=== PATIENT | male | born 1960 | race Caucasian/White ===

== ENCOUNTER 2017-12-04 16:34 | Inpatient (IN) | payer OTHER ==
[~2017-12-04] VITALS: Ht 177.8 cm; Wt 88.5 kg
[2017-12-04 16:50] VITALS: BP 126/84
[2017-12-04 17:23] LABS: ABSOLUTE LYMPHOCYTES 0.9 thou/uL (0.8-5.3); ABSOLUTE MONOCYTES 1.4 thou/uL (0.0-1.2); ABSOLUTE NEUTROPHILS 6.6 thou/uL (1.6-8.1); BASOPHILS 0.4 %; EOSINOPHILS 0.1 %; HEMATOCRIT 41.9 % (42.0-52.0); HEMOGLOBIN 14.6 gm/dL (14.0-18.0); MCHC 34.9 g/dL (28.0-37.0); MCV 100.3 fL (80.0-100.0); MONOCYTES 16.1 %; MPV 7.8 fl. (7.2-11.1); NUCLEATED RBCS 0 /100WBC; PLATELET COUNT* 94 thou/uL (150-400); POLYS 73.4 %; RBC 4.18 mil/uL (4.50-6.00); RDW-CV 14.1 % (10.5-14.5)
[2017-12-04 17:31] LABS: ANION GAP 11 mmol/L (7-16); BUN 18 mg/dL (7-18); CALCIUM 8.9 mg/dL (8.5-10.1); CHLORIDE 97 mmol/L (98-107); CO2 26 mmol/L (21-32); CREATININE 0.7 mg/dL (0.6-1.3); GLUCOSE 92 mg/dL (70-99); POTASSIUM 3.4 mmol/L (3.5-5.1); SODIUM 134 mmol/L (136-145)
[2017-12-04 17:38] LABS: ALKALINE PHOSPHATASE 118 U/L (46-116); LIPASE 211 U/L (73-393); SGOT 85 U/L (15-37); SGPT 59 U/L (30-65); TOTAL BILIRUBIN 2.6 mg/dL (<0.1-1.0); TROPONIN-I LEVEL <0.06 ng/mL (<0.06)
[2017-12-04 17:42] LABS: URINE BLOOD NEGATIVE (Negative); URINE CLARITY CLEAR; URINE COLOR DARK YELLOW; URINE GLUCOSE-RANDOM NEGATIVE (Negative); URINE KETONES 1+ (Negative); URINE LEUKOCYTES-REFLEX NEGATIVE (Negative); URINE PROTEIN TRACE (Negative); URINE SPECIFIC GRAVITY 1.025 (1.005-1.030)
[2017-12-04 17:43] LABS: ICTOTEST (BILI CONFIRMATORY) Negative (Negative); URINE BILIRUBIN 2+ (Negative); URINE NITRITE-REFLEX POSITIVE (Negative)
[2017-12-04 17:49] LABS: AMP/METHAMP Negative (Negative); BARBITURATES Negative (Negative); BENZODIAZEPINES Negative (Negative); COCAINE Negative (Negative); METHADONE Negative (Negative); OPIATES Negative (Negative); PCP Negative (Negative); THC Negative (Negative)
[2017-12-04 17:50] LABS: SQUAMOUS 4-10 Moderate /LPF (0-3)
[2017-12-04 17:51] LABS: CASTS None Seen /LPF (None Seen); CRYSTALS None Seen /LPF (None Seen); MUCUS 4-6 Moderate strn/LPF (None Seen); URINE RBC None Seen /HPF (0-2); URINE WBC-REFLEX 0-5 Rare /HPF (0-5)
[2017-12-04 22:11] VITALS: BP 126/77
[2017-12-04 22:20] VITALS: BP 113/74
[2017-12-04 23:08] LABS: INR 1.2; PROTIME 12.7 Seconds (9.20-11.50)
[2017-12-04 23:11] LABS: MAGNESIUM 1.9 mg/dL (1.8-2.4); PHOSPHORUS* 4.4 mg/dL (2.5-4.9)
[2017-12-05 04:00] VITALS: BP 120/79
[2017-12-05 04:36] LABS: HEMATOCRIT 38.2 % (42.0-52.0); HEMOGLOBIN 13.1 gm/dL (14.0-18.0); MCH 34.7 pg (26.0-34.0); MCHC 34.3 g/dL (28.0-37.0); MCV 101.1 fL (80.0-100.0); MPV 7.8 fl. (7.2-11.1); RBC 3.78 mil/uL (4.50-6.00); RDW-CV 13.7 % (10.5-14.5); WBC 6.8 thou/uL (4.0-11.0)
[2017-12-05 05:01] LABS: ALBUMIN 2.4 g/dL (3.4-5.0); CALCIUM 7.8 mg/dL (8.5-10.1); CREATININE 0.6 mg/dL (0.6-1.3); TOTAL BILIRUBIN 1.4 mg/dL (<0.1-1.0); TOTAL PROTEIN 6.6 g/dL (6.4-8.2)
[2017-12-05 05:44] LABS: POTASSIUM 2.9 mmol/L (3.5-5.1)
--- NOTE | 2017-12-05 10:18 | EKG ---
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 CHRIS : 1960 Requested By: Jailyn Vaz Order Number: [id number] MD: Reymundo Corley Measurements Intervals [place] Rate: 85 P: 51 [place]: 169 QRS: 2 QRSD: 110 T: 44 QT: 430 QTc: 512 Interpretive Statements Sinus rhythm Abnormal R-wave progression, early transition Minimal ST elevation, anterior leads Prolonged QT interval No previous ECG available for comparison Electronically Signed On 12-05-2017 10:18:32 CDT by Reymundo Corley [email or web address] <ELECTRONICALLY SIGNED> By: Reymundo Corley MD, [facility] 12/05/17 1018 1729 1729 Reymundo Corley MD, [facility] /EPI
[2017-12-05 12:19] VITALS: BP 136/83
[2017-12-05 15:42] VITALS: BP 136/83
[2017-12-05 16:26] VITALS: BP 123/83
[2017-12-05 20:00] VITALS: BP 127/78
[2017-12-06] VITALS: BP 130/75
[2017-12-06 04:00] VITALS: BP 133/90
[2017-12-06 04:50] LABS: HEMATOCRIT 40.4 % (42.0-52.0); HEMOGLOBIN 13.6 gm/dL (14.0-18.0); MCH 34.3 pg (26.0-34.0); MCHC 33.6 g/dL (28.0-37.0); MCV 102.2 fL (80.0-100.0); RBC 3.96 mil/uL (4.50-6.00); RDW-CV 14.2 % (10.5-14.5); WBC 4.4 thou/uL (4.0-11.0)
[2017-12-06 05:11] LABS: ALBUMIN 2.5 g/dL (3.4-5.0); CALCIUM 8.4 mg/dL (8.5-10.1); CREATININE 0.6 mg/dL (0.6-1.3); MAGNESIUM 1.5 mg/dL (1.8-2.4); PHOSPHORUS* 2.6 mg/dL (2.5-4.9); POTASSIUM 3.8 mmol/L (3.5-5.1); TOTAL BILIRUBIN 2.3 mg/dL (<0.1-1.0); TOTAL PROTEIN 6.9 g/dL (6.4-8.2)
[2017-12-06 07:30] VITALS: BP 127/84
[2017-12-06 12:06] VITALS: BP 134/82
[2017-12-06 15:54] VITALS: BP 158/101
[2017-12-06 20:00] VITALS: BP 142/90
[2017-12-07] VITALS: BP 136/84
[2017-12-07 04:00] VITALS: BP 139/90
[2017-12-07 05:03] LABS: HEMATOCRIT 40.4 % (42.0-52.0); HEMOGLOBIN 14.1 gm/dL (14.0-18.0); MCH 35.5 pg (26.0-34.0); MCHC 35.1 g/dL (28.0-37.0); MCV 101.3 fL (80.0-100.0); MPV 7.8 fl. (7.2-11.1); RBC 3.99 mil/uL (4.50-6.00); RDW-CV 13.8 % (10.5-14.5); WBC 4.2 thou/uL (4.0-11.0)
[2017-12-07 05:29] LABS: ALBUMIN 2.5 g/dL (3.4-5.0); CALCIUM 8.5 mg/dL (8.5-10.1); CREATININE 0.6 mg/dL (0.6-1.3); MAGNESIUM 1.6 mg/dL (1.8-2.4); POTASSIUM 3.5 mmol/L (3.5-5.1); TOTAL BILIRUBIN 1.3 mg/dL (<0.1-1.0); TOTAL PROTEIN 7.3 g/dL (6.4-8.2)
[2017-12-07 07:30] VITALS: BP 135/95
[2017-12-07 12:25] VITALS: BP 129/87
[2017-12-07 13:23] LABS: MAGNESIUM 1.7 mg/dL (1.8-2.4); POTASSIUM 4.1 mmol/L (3.5-5.1)
--- NOTE | 2017-12-07 16:02 | CON ---
[address] [address] CONSULTATION Name: DEVIKA WONG Room: [address] IN .R.#: [id number] Admission: 12/04/17 Attend Phys: Hardy Ivey MD Discharge: Date of : 58 Report #: [id number] THIS REPORT FOR: //name// CC: Hardy Ivey [facility] physician/PCP DATE OF SERVICE: 12/06/2017 CONSULTATION: Infectious Diseases. HISTORY OF PRESENT ILLNESS: Mr. Devika Wong is a 57-year-old gentleman who comes in to the hospital complaining of multiple falls as well as pain in his left ear. The patient is homeless, living in a plastic longterm in the [facility]. He has noted for a few days of increasing ear pain, and falling down. Evaluation showed significant soft tissue bruising, but no major injuries. He has some arthritis. However, the CT of the neck and the head demonstrates significant mastoiditis on the left with middle ear fluid. PAST MEDICAL HISTORY: Significant for alcoholism. The chart notes that patient drinks 30 beers per day. He clarifies he has up to 30 beers per day, but typically will have one or two 6-packs per day. He denies any other medical problems. ALLERGIES: No allergies. FAMILY HISTORY: Noncontributory. REVIEW OF SYSTEMS: The patient is single. 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 He was living in hotel and he ran out of money. He moved to the [facility]. He says he is able to eat using [employer] from the [employer] and he says he has 1-2 meals per day. He says he drinks about a 6-pack or two a day. He smokes 2-3 cigarettes per day, mostly when he drinks. REVIEW OF SYSTEMS: At this time, the patient really says he is very comfortable and does not offer any complaints. Denies any head, neck, chest, GI or problems. On questioning, he does note pain in his left ear and mastoid. PHYSICAL EXAMINATION: GENERAL: The patient appears his stated age, alert, oriented, comfortable, not in any distress. VITAL SIGNS: Show no fevers since coming to the hospital. SKIN: Shows a number of small follicular rashes consistent with living in the [facility]. Nothing terribly significant. ENT: Shows drainage in the left ear. The pinna is tender when pressed. The mastoid on the left side is somewhat tender. [place] [address] CONSULTATION Name: DEVIKA WONG Room: [address] IN [facility]#: [id number] Admission: 12/04/17 Attend Phys: Hardy Ivey MD Discharge: Date of : 58 Report #: [id number] adenopathy. HEART: Sounds normal. LUNGS: Clear. ABDOMEN: Belly soft, not tender. EXTREMITIES: Shows some swelling in the left arm from infiltration of the IV. LABORATORY DATA: White count is 9.0 initially, down to 4.4, hemoglobin 13.6, platelet 83,000. Electrolytes: BUN and creatinine are normal. Liver function tests are elevated with bilirubin 2.6, SGOT 165, SGPT 94, alkaline phosphatase 128, GGTP elevated at 676. The blood cultures x 2 are negative. Urine culture is negative. IMPRESSION: 1. Otitis with mastoiditis. 2. Alcoholism with elevated liver function tests and probable early cirrhosis. PLAN: I concur with Zosyn IV and moxifloxacin eardrops for the otitis. I do not think the patient will need surgery at this time. He seems fairly comfortable. With mastoiditis, the patient will need a long course of antibiotic therapy. He does have elevated QT interval on EKG, which may be a concern with Cipro, which will probably be our choice of antibiotic for mastoiditis. He may want to try the Cipro and see if he tolerates it on EKG. For now, we will continue on Zosyn and topical quinolones. The patient will need assistance with his social impediments to healing including tobacco, alcohol, and housing issues. Thank you for this consultation. <ELECTRONICALLY SIGNED> By: Hal Alberto MD 12/07/17 1602 1251 [id number] Alberto MD /nt
[2017-12-07 16:28] VITALS: BP 120/80
[2017-12-07 20:00] VITALS: BP 134/91
[2017-12-08] VITALS: BP 134/94
[2017-12-08 04:00] VITALS: BP 158/98
[2017-12-08 05:22] LABS: HEMATOCRIT 42.9 % (42.0-52.0); HEMOGLOBIN 14.6 gm/dL (14.0-18.0); MCH 34.7 pg (26.0-34.0); MCV 102.1 fL (80.0-100.0); MPV 7.6 fl. (7.2-11.1); RBC 4.2 mil/uL (4.50-6.00); WBC 4.8 thou/uL (4.0-11.0)
[2017-12-08 05:38] LABS: CALCIUM 8.9 mg/dL (8.5-10.1); CREATININE 0.6 mg/dL (0.6-1.3); MAGNESIUM 1.8 mg/dL (1.8-2.4); POTASSIUM 4.2 mmol/L (3.5-5.1)
[2017-12-08 08:00] VITALS: BP 158/98
[2017-12-08 13:20] VITALS: BP 122/85
[2017-12-08 16:00] VITALS: BP 129/90
[2017-12-08 20:25] VITALS: BP 144/91
[2017-12-09 00:50] VITALS: BP 129/78
[2017-12-09 05:11] VITALS: BP 154/86
[2017-12-09 06:28] LABS: CALCIUM 8.6 mg/dL (8.5-10.1); CREATININE 0.7 mg/dL (0.6-1.3); MAGNESIUM 1.8 mg/dL (1.8-2.4); POTASSIUM 4.5 mmol/L (3.5-5.1)
[2017-12-09 11:39] VITALS: BP 136/83
[2017-12-09] MEDS ORDERED: LEVAQUIN 750 M750 MG PO (11:56)
[2017-12-09] MEDS ORDERED: ALEVE220 MG PO (11:57)
[2017-12-09] MEDS ORDERED: OCUFLOX5 ML OTIC (11:58)
[2017-12-09] MEDS ORDERED: HYDROCODON-ACE1 EAC7 PO (11:58)
[2017-12-09 12:38] VITALS: BP 126/78
== END 2017-12-09 13:50 | disposition home or self-care (01) | DRG 152 ==
LOC: M.ERS 16:34 → M.TBA-ER 19:53 → M.2W 21:46 → M.TBA-ER 21:48 → M.2W 22:12
PROVIDERS: Family Medicine; Physician Assistant; ADMIT Internal Medicine
DX: H66.92 Otitis media, unspecified, left ear (principal); J18.9 Pneumonia, unspecified organism; E43 Unspecified severe protein-calorie malnutrition; N39.0 Urinary tract infection, site not specified; H70.92 Unspecified mastoiditis, left ear; F10.20 Alcohol dependence, uncomplicated; E87.6 Hypokalemia; I10 Essential (primary) hypertension; K70.30 Alcoholic cirrhosis of liver without ascites; D75.89 Other specified diseases of blood and blood-forming organs; M47.896 Other spondylosis, lumbar region; D69.6 Thrombocytopenia, unspecified; E83.42 Hypomagnesemia; K76.0 Fatty (change of) liver, not elsewhere classified; Z23 Encounter for immunization; Z68.28 Body mass index [BMI] 28.0-28.9, adult; Z79.899 Other long term (current) drug therapy